=== PATIENT | female | born 1945 ===

== ENCOUNTER 2017-12-24 21:03 | Emergency (ER) | payer MEDICARE ==
[2017-12-24] MEDS ORDERED: Sodium Chloride 0.9% 1,000 ML IV STA (22:01)
[2017-12-24] MEDS ORDERED: Famotidine 20mg/50ml 20 MG/50 ML BAG IVPB ONE (22:12)
--- NOTE | 2017-12-24 22:13 | ED PDOC ---
HPI: Abdomen Time Seen by Provider: 12/24/17 21:52 Chief Complaint (Nursing): Abdominal Pain Chief Complaint (Provider): Abdominal Pain History Per: Patient History/Exam Limitations: no limitations Onset/Duration Of Symptoms: Hrs Current Symptoms Are (Timing): Still Present Additional Complaint(s): 72 year old female with a history of HTN and gastritis presents to the ED with complaints of vomiting, sinus headache and pressure. Patient states she went to an Urgent Care center today and was prescribed azithromycin and flonase. Patient states that today she began to feel a burning epigastric pain associated with four episodes of vomiting. Patient reports she has had a longstanding history of abdominal pain and had a abdominal CT taken on Thursday. Patient reports she had a small amount of stool. Additionally, patient complains of a mild throbbing headache occurring after vomiting episodes. Denies diarrhea, fever, chest pain, and shortness of breath. PMD: Gustavo Saldana Past Medical History Reviewed: Historical Data, Nursing Documentation, Vital Signs Vital Signs: Last Vital Signs Temp 98.3 F 12/24/17 21:29 Pulse 77 12/24/17 21:29 Resp 17 12/24/17 21:29 BP 147/75 12/24/17 21:29 Pulse Ox 97 12/24/17 22:54 - Medical History PMH: Gastritis, HTN, Hypercholesterolemia Denies: Chronic Kidney Disease - Surgical History Surgical History: Appendectomy, Endoscopy - Family History Family History: States: Unknown Family Hx - Home Medications Home Medications: Ambulatory Orders Medication Instructions Recorded Valsartan/Hydrochlorothiazide 1 tab PO DAILY 01/09/15 [Valsartan and Hydrochlorothiazide 25 mg-160 M] Linaclotide [Linzess] 145 mcg PO DAILY 11/27/15 Omeprazole 40 mg PO DAILY 11/27/15 Ondansetron [Zofran] 4 mg PO Q8H #12 tab 12/25/17 - Allergies Allergies/Adverse Reactions: Allergies Allergy/AdvReac Type Severity Reaction Status Date / Time No Known Allergies Allergy Verified 11/27/15 07:42 Review of Systems ROS Statement: Except As Marked, All Systems Reviewed And Found Negative Constitutional: Negative for: Fever Cardiovascular: Negative for: Chest Pain Respiratory: Negative for: Shortness of Breath Gastrointestinal: Positive for: Vomiting. Negative for: Diarrhea Neurological: Positive for: Headache (sinus headache and pressure) Physical Exam - Reviewed Nursing Documentation Reviewed: Yes Vital Signs Reviewed: Yes - Physical Exam Appears: Positive for: Well, No Acute Distress Head Exam: Positive for: ATRAUMATIC, NORMOCEPHALIC Skin: Positive for: Normal Color, Warm, Dry Eye Exam: Positive for: Normal appearance, EOMI, PERRL Neck: Positive for: Normal Cardiovascular/Chest: Positive for: Regular Rate, Rhythm Respiratory: Positive for: Normal Breath Sounds. Negative for: Respiratory Distress Gastrointestinal/Abdominal: Positive for: Normal Exam, Soft, Tenderness (mild epigastric tenderness). 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 Negative for: Motor/Sensory Deficits, Aphasia, Facial Droop - Laboratory Results Result Diagrams: 12/24/17 22:22 12/24/17 22:22 - ECG O2 Sat by Pulse Oximetry: 97 (RA) Pulse Ox Interpretation: Normal Medical Decision Making Medical Decision Making: Time: 2204 A/P: History of HTN and Gastritis presenting with vomiting and epigastric pain. - Patient is very well appearing, normal vital sings - ddx: likely gastritis vs. less likely cholecystitis vs. gall stones - will get blood work - IV fluid and symptomatic relief - pending re-eval after workup Time: 0014 - Patient much improved, tolerating PO - Labs normal, vitals normal - Patient well appearing, ambulatory, advised to start taking her medications as prescribed - Advised patient to followup in clinic with Dr. Saldana Scribe Attestation: Documented by Rashawn Berg, acting as a scribe for Dr. Fortunato Ling MD. Provider Scribe Attestation: All medical record entries made by the Scribe were at my direction and personally dictated by me. I have reviewed the chart and agree that the record accurately reflects my personal performance of the history, physical exam, medical decision making, and the department course for this patient. I have also personally directed, reviewed, and agree with the discharge instructions and disposition. Disposition - Clinical Impression Clinical Impression: Gastritis, Vomiting - Patient ED Disposition Is Patient to be Admitted: No - Disposition Referrals: Gustavo Saldana MD [Family Provider] - Disposition: Routine/Home Disposition Time: 00:14 Condition: IMPROVED Prescriptions: Ondansetron [Zofran] 4 mg PO Q8H #12 tab Instructions: Gastritis, Nausea and Vomiting, Adult (DC) Forms: [employer] ([place]i) Print Language: SWEDISH
[2017-12-24 22:25] LABS: BASO % 0.3 % (0.0-2.0); EOS % 0.1 % (0.0-4.0); HEMOGLOBIN 13.5 g/dL (12.0-16.0); LYMPH % 19.1 % (20.0-40.0); MEAN CELL VOLUME 96.5 fl (81.0-99.0); MEAN CORPUSCULAR HEMOGLOBIN 32.3 pg (27.0-31.0); MEAN CORPUSCULAR HGB CONC 33.5 g/dL (33.0-37.0); MEAN PLATELET VOLUME 10.9 fl (7.2-11.7); MONO # 0.5 K/uL (0.0-0.8); MONO % 8.5 % (0.0-10.0); NEUT # 3.9 K/uL (1.8-7.0); NRBC % 0.1 % (0.0-0.0); RBC 4.17 Mil/uL (3.80-5.20); RED CELL DISTRIBUTION WIDTH 12.6 % (11.5-14.5); WHITE BLOOD COUNT 5.5 K/uL (4.8-10.8)
[2017-12-24] MEDS ORDERED: Famotidine 20mg/50ml Premix IVPB STA (22:44)
[2017-12-24 23:01] LABS: BLOOD UREA NITROGEN 16 mg/dl (7-17); CALCIUM 9.7 mg/dL (8.4-10.2); GFR AFRICAN-AMERICAN > 60; GFR NON-AFRICAN AMERICAN > 60
[2017-12-25 00:17] VITALS: BP 132/79; PULSE 72; RESP 16; TEMP 98.4; O2SAT 99
== END 2017-12-25 00:29 | disposition home or self-care (01) ==
LOC: H.ER 21:03
DX: K29.70 Gastritis, unspecified, without bleeding (principal); R11.10 Vomiting, unspecified; E78.00 Pure hypercholesterolemia, unspecified; I10 Essential (primary) hypertension
CPT/HCPCS: 80048; 81025; 85025; 96374; 99284; J2405; J2765; J7030